=== PATIENT | female | born 1985 | race Caucasian/White ===

== ENCOUNTER → 2018-08-19 | Outpatient (CLI) | payer OTHER ==
[~2018-08-19] MED LIST: IBUP800 PO; OXYACE5T PO; Verotin-Gr Cap1 EACH PO
[2018-08-19 12:12] LABS: BASOPHILS ABSOLUTE AUTO 0.02 K/mm3 (0.00-0.23); BASOPHILS PERCENT AUTO 1 % (0-2); EOSINOPHILS ABSOLUTE AUTO 0.05 K/mm3 (0.00-0.68); EOSINOPHILS PERCENT AUTO 1 % (0-6); Hematocrit 43.6 % (33.0-51.0); Hemoglobin 15.6 g/dL (11.5-16.0); IMMATURE GRAN ABSOLUTE AUTO 0.01 K/mm3 (0.00-0.10); IMMATURE GRAN PERCENT AUTO 0 % (0-1); LYMPHOCYTES ABSOLUTE AUTO 1.35 K/mm3 (0.84-5.20); LYMPHOCYTES PERCENT AUTO 32 % (21-46); MONOCYTES ABSOLUTE AUTO 0.34 K/mm3 (0.16-1.47); MONOCYTES PERCENT AUTO 8 % (4-13); Mean Corpuscular HGB 32.3 pg (26.0-34.0); Mean Corpuscular HGB Conc 35.8 g/dL (31.5-36.5); Mean Corpuscular Volume 90 fL (80-100); Mean Platelet Volume 9.7 fL (9.1-12.4); NEUTROPHILS ABSOLUTE AUTO 2.41 K/mm3 (1.96-9.15); NEUTROPHILS PERCENT AUTO 58 % (41-73); Platelet Count 216 K/mm3 (150-400); RDW Coefficient Variation 11.4 % (11.7-14.2); RDW Standard Deviation 37.5 fL (35.1-46.3); Red Blood Cell Count 4.83 M/mm3 (3.80-5.20); White Blood Cell Count 4.18 K/mm3 (4.00-11.30)
[2018-08-19 12:35] LABS: Alanine Aminotransfer (ALT/SGP 31 U/L (12-78); Albumin, Blood 3.8 g/dL (3.4-5.0); Albumin/Globulin Ratio 1.3 (0.8-1.8); Alk Phos 61 U/L (40-126); Anion Gap 7 mmol/L (6-16); Aspartate Aminotrans (AST/SGOT 29 U/L (12-37); Bilirubin, Total 0.3 mg/dL (0.1-1.0); Blood Urea Nitrogen 10 mg/dL (8-24); Bun/Creatinine Ratio 14.5 (12.0-20.0); CO2, Blood 28 mmol/L (21-32); Chloride, Blood 105 mmol/L (98-108); Creatinine, Blood 0.69 mg/dL (0.40-1.00); Glomerular Filtration Rate >60 (60-); Glucose, Blood 92 mg/dL (70-99); Potassium, Blood 4.4 mmol/L (3.5-5.5); Sodium, Blood 140 mmol/L (136-145); Thyroid Stimulating Hormone 1.391 uIU/mL (0.360-4.800); Total Protein, Blood 6.8 g/dL (6.4-8.2)
== END | disposition home or self-care (01) ==
LOC: LAB EV 12:04 → LAB SHORT 12:04
PROVIDERS: Physician Assistant
DX: R53.83 Other fatigue (principal)
CPT/HCPCS: 80053; 84443; 84702; 85025

== ENCOUNTER → 2020-04-13 | Outpatient (CLI) | payer OTHER | END | disposition home or self-care (01) | LOC: LAB 11:00 → LAB SHORT 11:00 | DX: L60.0 Ingrowing nail (principal) | CPT/HCPCS: 87070; 87077; 87186; 87205 ==

== ENCOUNTER 2021-11-27 06:50 | Day surgery (SDC) | payer OTHER ==
[~2021-11-27] VITALS: Ht 170.2 cm; Wt 71.5 kg
[~2021-11-27 06:50] MED LIST changes: +CLON.5; +Nortrel1 EAC2
--- NOTE | 2021-11-27 07:31 | NUR ---
11/27/21 0731 [place] TWO ATTEMPTS AT IV. FIRST ATTEMPT IN R WRIST BY KALPANA UNABLE TO ADVANCE. SECOND ATTEMPT IN R AC BY KALPANA SUCESSFUL.
== END 2021-11-27 09:44 | disposition home or self-care (01) ==
LOC: ORSCSDS 06:50
PROVIDERS: Internal Medicine Gastroenterology
PROC: 0DBK8ZX Excision of Ascending Colon, Via Natural or Artificial Opening Endoscopic, Diagnostic (ICD-10-PCS; principal; 2021-11-27 08:00)
PROC: 0DBL8ZX Excision of Transverse Colon, Via Natural or Artificial Opening Endoscopic, Diagnostic (ICD-10-PCS; principal; 2021-11-27 08:00)
DX: Z12.11 Encounter for screening for malignant neoplasm of colon (principal); Z83.71 Family history of colonic polyps; D12.2 Benign neoplasm of ascending colon; K63.5 Polyp of colon; Z15.09 Genetic susceptibility to other malignant neoplasm
CPT/HCPCS: 88305; J2704; J7120

== ENCOUNTER → 2023-11-19 | Outpatient (CLI) | payer OTHER ==
[~2023-11-19] MED LIST changes: +BENADRYL25 MG PO
[2023-11-19 19:51] LABS: Bacterial Vaginosis PCR Negative (NEGATIVE); Candida Group, PCR NOT DETECTED (NOT DETECT)
[2023-11-19 20:01] LABS: Candida glabrata-krusei, PCR DETECTED (NOT DETECT)
== END | disposition home or self-care (01) ==
LOC: LAB 16:30 → LAB SHORT 16:30
PROVIDERS: Family Medicine
DX: B37.31 Acute candidiasis of vulva and vagina (principal)
CPT/HCPCS: 87481; 87661; 87801

== ENCOUNTER → 2024-03-28 | Outpatient (CLI) | payer OTHER ==
[2024-03-28 14:34] LABS: Source, Urine Clean Catch
[2024-03-28 15:57] LABS: Amorphous Mod (0-Heavy); Bacteria Many /hpf; Red Blood Cells, Urine 0-2 /hpf (0-2); Squamous Epithelial Cells Many /hpf (Few)
[2024-03-28 17:03] LABS: Bacterial Vaginosis PCR Negative (NEGATIVE); Candida glabrata-krusei, PCR NOT DETECTED (NOT DETECT)
[2024-03-28 17:29] LABS: Candida Group, PCR DETECTED (NOT DETECT)
== END ==
LOC: LAB SHORT 14:15
PROVIDERS: Obstetrics & Gynecology
DX: O98.812 Other maternal infectious and parasitic diseases complicating pregnancy, second trimester (principal); B37.31 Acute candidiasis of vulva and vagina; O09.812 Supervision of pregnancy resulting from assisted reproductive technology, second trimester
CPT/HCPCS: 81015; 87086; 87481; 87661; 87801

== ENCOUNTER → 2024-05-03 | Outpatient (CLI) | payer OTHER ==
[2024-05-03 19:30] LABS: Bacterial Vaginosis PCR Negative (NEGATIVE); Candida glabrata-krusei, PCR NOT DETECTED (NOT DETECT)
[2024-05-03 19:34] LABS: Candida Group, PCR DETECTED (NOT DETECT)
== END ==
LOC: LAB 13:40 → LAB SHORT 13:40
PROVIDERS: Obstetrics & Gynecology
DX: O23.592 Infection of other part of genital tract in pregnancy, second trimester (principal)
CPT/HCPCS: 81515

== ENCOUNTER → 2024-06-13 | Outpatient (CLI) | payer OTHER | END | disposition home or self-care (01) | LOC: LAB SHORT 15:31 → LAB 15:31 | DX: O09.93 Supervision of high risk pregnancy, unspecified, third trimester (principal) | CPT/HCPCS: 87081; 87150 ==

== ENCOUNTER 2024-07-13 12:56 | Inpatient (IN) | payer OTHER ==
[~2024-07-13] VITALS: Ht 170.2 cm; Wt 80.9 kg
[2024-07-13] MEDS ORDERED: ASPIR 8181 M1 PO (13:25)
[2024-07-13] MEDS ORDERED: PRENATAL TABLE1 EAC2 PO (13:25)
[2024-07-14] VITALS (38 sets, daily range): BP systolic 75–162; BP diastolic 38–97
[2024-07-14] MEDS ORDERED: Lactated Ringer's 1,000 ML IV PRN ×2 (05:35)
[2024-07-14] MEDS ORDERED: Metoclopramide HCl 5MG / ML 2ML Vial IV PRN ×2 (05:35→09:10)
[2024-07-14] MEDS ORDERED: Citric Acid/Sodium Citrate 30 ML BTL PO PRN (05:35)
[2024-07-14 06:25] LABS: BASOPHILS ABSOLUTE AUTO 0.03 K/mm3 (0.00-0.23); BASOPHILS PERCENT AUTO 0 % (0-2); EOSINOPHILS ABSOLUTE AUTO 0.09 K/mm3 (0.00-0.68); EOSINOPHILS PERCENT AUTO 1 % (0-6); Hematocrit 37.2 % (33.0-51.0); Hemoglobin 13.4 g/dL (11.5-16.0); IMMATURE GRAN ABSOLUTE AUTO 0.04 K/mm3 (0.00-0.10); IMMATURE GRAN PERCENT AUTO 1 % (0-1); LYMPHOCYTES ABSOLUTE AUTO 1.52 K/mm3 (0.84-5.20); LYMPHOCYTES PERCENT AUTO 21 % (21-46); MONOCYTES ABSOLUTE AUTO 0.57 K/mm3 (0.16-1.47); MONOCYTES PERCENT AUTO 8 % (4-13); Mean Corpuscular HGB 33.8 pg (26.0-34.0); Mean Corpuscular Volume 94 fL (80-100); NEUTROPHILS ABSOLUTE AUTO 5.12 K/mm3 (1.96-9.15); NEUTROPHILS PERCENT AUTO 70 % (41-73); Platelet Count 290 K/mm3 (150-400); RDW Coefficient Variation 12.1 % (11.7-14.2); RDW Standard Deviation 42.1 fL (35.1-46.3); Red Blood Cell Count 3.96 M/mm3 (3.80-5.20); White Blood Cell Count 7.37 K/mm3 (4.00-11.30)
[2024-07-14] MEDS ORDERED: CeFAZolin Sodium 2,000 MG in NS 100 ML IV SCH (06:30)
[2024-07-14] MEDS ORDERED: Oxytocin 10 Unit / ML Vial ONE (06:34)
[2024-07-14] MEDS ORDERED: FentaNYL Citrate 50 MCG/ML 2 ML Injection ONE (06:34)
[2024-07-14] MEDS ORDERED: ePHEDrine Sulfate 50 MG/ML 1ML Injection ONE (07:52)
[2024-07-14] MEDS ORDERED: ePHEDrine Sulfate 50 MG/ML 1ML Injection IV PRN (09:10)
[2024-07-14] MEDS ORDERED: Ondansetron HCl 2 MG / ML 2ML Vial IV PRN ×2 (09:10→10:00)
[2024-07-14] MEDS ORDERED: Naloxone HCl 0.4MG / ML 1ML Vial IV PRN (09:15)
[2024-07-14] MEDS ORDERED: Acetaminophen 500 MG Tab PO PRN (09:45)
[2024-07-14] MEDS ORDERED: HYDROmorphone HCl 2 MG Tab PO PRN (09:45)
[2024-07-14] MEDS ORDERED: Carboprost Tromethamine 250 MCG/ML 1ML Amp IM PRN (09:45)
[2024-07-14] MEDS ORDERED: Morphine Sulfate 4 MG/1 ML Injection IV PRN (09:50)
[2024-07-14] MEDS ORDERED: DiphenhydrAMINE HCL 25 MG Cap PO PRN (09:55)
[2024-07-14] MEDS ORDERED: Lactated Ringer's 1,000 ML IV SCH (09:55)
[2024-07-14] MEDS ORDERED: Magnesium Hydroxide Conc 10 ML UDC PO PRN (09:55)
[2024-07-14] MEDS ORDERED: Ketorolac Tromethamine 30mg Vial IV SCH (10:00)
[2024-07-14] MEDS ORDERED: Metoclopramide HCl 10 MG Tab PO PRN (10:00)
[2024-07-14] MEDS ORDERED: Methylergonovine Maleate 0.2MG / ML 1ML Amp IM PRN (10:00)
[2024-07-14] MEDS ORDERED: Misoprostol 200 MCG Tab PR PRN (10:00)
[2024-07-14] MEDS ORDERED: Lanolin Cream TOP PRN (10:00)
[2024-07-14] MEDS ORDERED: Promethazine HCl 25 MG Tab PO PRN (10:05)
[2024-07-14] MEDS ORDERED: OXYTOCIN/RINGER'S LACTATE 500 ML IV PRN (10:05)
[2024-07-14] MEDS ORDERED: OXYTOCIN/RINGER'S LACTATE 500 ML IV SCH (10:05)
[2024-07-14] MEDS ORDERED: Simethicone 80 MG Chew PO PRN (10:10)
[2024-07-14] MEDS ORDERED: Rho(D) Immune Globulin 300 MCG / SYR IM ONE (10:10)
[2024-07-14] MEDS ORDERED: Methylergonovine Maleate 0.2MG / ML 1ML Amp IV ONE (10:16)
--- NOTE | 2024-07-14 11:45 | NUR ---
PT REPORTS 8/10 PAIN FOLLOWING ADMINSTRATION OF 2MG IV MORPHINE @1015. PT PROVIDED WITH 4MG PO DILAUDID AND 1000MG TYLENOL @1109 @1125 REPORTS PT FEELING NAUSEATED AND PROVIDED WITH ZOFRAN. AT THIS TIME PT BP CONTINUES TO DECREASE TO LOW OF 75/38. PT MEDICATED WITH 5MG OF EPI BY WOODY NOLAN @1133 AND AGAIN @1141. PT BP RECOVERED AND PT REPORTS FEELING MUCH BETTER SEE VITAL SIGNS
--- NOTE | 2024-07-14 14:28 | NUR ---
PROVIDER CALL REGARDING PT PAIN CONTROL DR. GRANDE ADVISES TO CONTINUE WITH MORPHINE ADMINISTRATION AND DECREASE DILAUDID DOSING IF PT NEEDS ADDITIONAL PAIN MANAGEMENT
[2024-07-14] MEDS ORDERED: Docusate Sodium 100 MG Cap PO SCH (21:00)
[2024-07-15] VITALS (7 sets, daily range): BP systolic 117–147; BP diastolic 63–73
[2024-07-15] MEDS ORDERED: Ibuprofen 400 MG Tab PO SCH (05:00)
[2024-07-15 06:26] LABS: BASOPHILS ABSOLUTE AUTO 0.03 K/mm3 (0.00-0.23); BASOPHILS PERCENT AUTO 0 % (0-2); EOSINOPHILS ABSOLUTE AUTO 0.03 K/mm3 (0.00-0.68); EOSINOPHILS PERCENT AUTO 0 % (0-6); Hematocrit 28.3 % (33.0-51.0); Hemoglobin 9.9 g/dL (11.5-16.0); IMMATURE GRAN ABSOLUTE AUTO 0.08 K/mm3 (0.00-0.10); IMMATURE GRAN PERCENT AUTO 1 % (0-1); LYMPHOCYTES PERCENT AUTO 11 % (21-46); MONOCYTES ABSOLUTE AUTO 0.63 K/mm3 (0.16-1.47); MONOCYTES PERCENT AUTO 5 % (4-13); Mean Corpuscular HGB 34.3 pg (26.0-34.0); Mean Corpuscular Volume 98 fL (80-100); Mean Platelet Volume 9.8 fL (9.1-12.4); NEUTROPHILS ABSOLUTE AUTO 10.88 K/mm3 (1.96-9.15); NEUTROPHILS PERCENT AUTO 83 % (41-73); Platelet Count 239 K/mm3 (150-400); RDW Coefficient Variation 12.6 % (11.7-14.2); RDW Standard Deviation 44.9 fL (35.1-46.3); Red Blood Cell Count 2.89 M/mm3 (3.80-5.20); White Blood Cell Count 13.15 K/mm3 (4.00-11.30)
[2024-07-15] MEDS ORDERED: Prenatal Vit/FE Fumarate/FA 1 Tab PO SCH (09:00)
--- NOTE | 2024-07-15 10:57 | NUR ---
PT ASSISTED WITH BREAST PUMP SET UP AND EDUCATED ON FEEDING/ PUMPING PLAN
[2024-07-15 13:05] LABS: Hematocrit 29.6 % (33.0-51.0); Hemoglobin 10.4 g/dL (11.5-16.0)
[2024-07-15] MEDS ORDERED: Sod Ferric Gluc Complx/Sucrose 125 MG in NS 100 ML IV SCH (13:30)
--- NOTE | 2024-07-15 18:39 | NUR ---
PT DECLINES TO SHOWER AT THIS TIME
[2024-07-16 03:25] VITALS: BP 121/70
[2024-07-16 07:38] VITALS: BP 132/66
[2024-07-16] MEDS ORDERED: HYDMOR2 PO (07:50)
[2024-07-16] MEDS ORDERED: IBUP800 PO (07:50)
--- NOTE | 2024-07-16 11:13 | NUR ---
PT AMBULATED OUT OF ROOM TO VEHICLE. TOLERATED WELL. D/C INSTRUCTIONS DISCUSSED. PT AND VERBALIZED UNDERSTANDING. PT PLANS TO FOLLOW UP WITH ENRIQUE PARR FOR .
== END 2024-07-16 11:00 | disposition home or self-care (01) | DRG 787 ==
LOC: BC 07-14 05:21
PROVIDERS: Obstetrics & Gynecology; ADMIT Obstetrics & Gynecology
PROC: 0HB9XZZ Excision of Perineum Skin, External Approach (ICD-10-PCS; 2024-07-14)
PROC: 10D00Z1 Extraction of Products of Conception, Low, Open Approach (ICD-10-PCS; principal; 2024-07-14 07:30)
DX: O34.211 Maternal care for low transverse scar from previous cesarean delivery (principal); D62 Acute posthemorrhagic anemia; Z3A.39 39 weeks gestation of pregnancy; Z37.0 Single live birth; O90.81 Anemia of the puerperium; O26.53 Maternal hypotension syndrome, third trimester; O99.344 Other mental disorders complicating childbirth; L91.8 Other hypertrophic disorders of the skin; O99.72 Diseases of the skin and subcutaneous tissue complicating childbirth; F41.9 Anxiety disorder, unspecified; Z88.5 Allergy status to narcotic agent
CPT/HCPCS: 36415; 85014; 85018; 85025; 86850; 86900; 86901; A9270; J0690; J1885; J2210; J2270; J2405; J2590; J2765; J2916; J3010; J7120